=== PATIENT | male | born 1990 | race African-American/Black ===

== ENCOUNTER 2018-02-15 15:10 | Emergency (ER) | payer OTHER ==
[~2018-02-15] VITALS: Ht 180.3 cm; Wt 65.8 kg
[~2018-02-15 15:10] MED LIST: DOXYCYCLINE 10100 MG PO; NOHOMEMEDICATIONS; PERCOCET 5-3251 EACH PO
[2018-02-15 15:29] LABS: ABSOLUTE NEUTROPHILS 3.5 thou/uL (1.4-8.2); BASOPHILS 0.7 % (0.0-2.0); EOSINOPHILS 4.6 % (0.0-3.0); HEMATOCRIT 37.9 % (42.0-52.0); HEMOGLOBIN 13.3 gm/dL (14.0-18.0); LYMPHOCYTES 32.1 % (24.0-44.0); MCV 82.7 fL (80.0-100.0); MONOCYTES 7.1 % (1.0-8.0); PLATELET COUNT 216 thou/uL (150-400); POLYS 55.5 % (36.0-66.0); RBC 4.58 mil/uL (4.50-6.00); RDW 14.8 % (10.5-14.5); WBC 6.3 thou/uL (4.0-11.0)
[2018-02-15 15:37] LABS: CALCIUM 8.6 mg/dL (8.5-10.1); POTASSIUM 3.7 mmol/L (3.5-5.1)
[2018-02-15] MEDS ORDERED: IBUPROFEN 600600 M1 PO (19:56)
[2018-02-15] MEDS ORDERED: KEFLEX500 M1 PO (19:56)
[2018-02-15] MEDS ORDERED: SENNA-DOCUSATE1 EACH PO (19:56)
[2018-02-15] MEDS ORDERED: NORCO 5-325 TA1 EACH PO (19:56)
[2018-02-15 20:16] VITALS: BP 175/113
== END 2018-02-15 20:17 | disposition home or self-care (01) ==
LOC: ER 15:10
PROVIDERS: Emergency Medicine
DX: S82.51XB Displaced fracture of medial malleolus of right tibia, initial encounter for open fracture type I or II (principal); S92.001A Unspecified fracture of right calcaneus, initial encounter for closed fracture; S92.101A Unspecified fracture of right talus, initial encounter for closed fracture; F17.210 Nicotine dependence, cigarettes, uncomplicated; W34.00XA Accidental discharge from unspecified firearms or gun, initial encounter; Y92.89 Other specified places as the place of occurrence of the external cause; Y93.89 Activity, other specified; Y99.8 Other external cause status

== ENCOUNTER 2018-03-09 13:04 | Emergency (ER) | payer OTHER ==
[~2018-03-09] VITALS: Ht 180.3 cm; Wt 68.0 kg
[~2018-03-09 13:04] MED LIST changes: +IBUPROFEN 600600 M1 PO; +KEFLEX500 M1 PO; +NORCO 5-325 TA1 EACH PO; +SENNA-DOCUSATE1 EACH PO
[2018-03-09 14:28] VITALS: BP 132/74
== END 2018-03-09 14:30 | disposition home or self-care (01) ==
LOC: ER 13:04
DX: S82.51XD Displaced fracture of medial malleolus of right tibia, subsequent encounter for closed fracture with routine healing (principal); S92.001D Unspecified fracture of right calcaneus, subsequent encounter for fracture with routine healing; S92.101D Unspecified fracture of right talus, subsequent encounter for fracture with routine healing; F17.210 Nicotine dependence, cigarettes, uncomplicated; W34.00XD Accidental discharge from unspecified firearms or gun, subsequent encounter